=== PATIENT | male | born 1940 | race Caucasian/White ===

== ENCOUNTER 2018-02-22 08:08 | Outpatient (CLI) | payer MEDICARE | END 2018-02-22 08:09 | disposition home or self-care (01) | LOC: DI 08:08 | PROVIDERS: ATTEND Family Medicine | DX: R06.00 Dyspnea, unspecified (principal); I10 Essential (primary) hypertension | CPT/HCPCS: 93306 ==

== ENCOUNTER 2019-06-16 08:42 | Outpatient (CLI) | payer MEDICARE ==
--- NOTE | 2019-06-16 11:22 | CT Report ---
Reason: CHRONIC SINUSITUS Procedure Date: 06/16/2019 Accession Number: [id number] / [id number] Procedure: CT - Sinuses CPT Code: Final Report FULL RESULT: EXAM: CT SINUS EXAM DATE: 06/16/2019 08:58 AM. HISTORY: Chronic sinusitis. COMPARISONS: CT HEAD WO CONT 04/05/2012 11:25 AM. TECHNIQUE: Routine multi-axial CT imaging performed through the sinuses. Iodinated IV contrast: None. Reconstructions: Sagittal and coronal. In accordance with CT protocol optimization, one or more of the following dose reduction techniques were utilized for this exam: automated exposure control, adjustment of mA and/or KV based on patient size, or use of iterative reconstructive technique. FINDINGS: RIGHT Frontal: Mild circumferential mucosal thickening is seen. Note is made of a bony septum extending inferiorly. Ethmoid: Normal. Maxillary: Unremarkable. Trace mucosal thickening is seen. Mild hypoplasia is noted. Sphenoid: Normal. Drainage Pathways: The inferior frontal septum is deviated convex to the right with a laterally oriented bony spur. This narrows the right frontoethmoidal recess. The ostiomeatal complex and sphenoethmoidal recess are patent. LEFT Frontal: Minimal mucosal thickening is seen inferiorly. Ethmoid: Normal. Maxillary: Polypoid mucosal thickening is seen inferiorly, not significantly changed. Sphenoid: Normal. Drainage Pathways: The frontal recess, ostiomeatal complex and sphenoethmoidal recess are patent and normal. Nasal Cavity: Minimal curvature of the septum is seen convex to the right. No mass or significant anatomic abnormality evident. Osseous Structures: Unremarkable. Orbits: Unremarkable. Note is made of right lens removal. Other: Opacification is seen involving inferior right mastoid air cells. IMPRESSION: 1. Mild mucosal thickening circumferentially in the right frontal sinus. 2. 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 Trace mucosal thickening is seen. 3. Mild polypoid mucosal thickening inferiorly in the left maxillary sinus. RADIA
== END 2019-06-16 08:43 | disposition home or self-care (01) ==
LOC: DI 08:42
PROVIDERS: ATTEND Family Medicine
DX: J32.9 Chronic sinusitis, unspecified (principal); J33.8 Other polyp of sinus; M26.02 Maxillary hypoplasia
CPT/HCPCS: 70486

== ENCOUNTER 2019-06-22 09:09 | Outpatient (CLI) | payer MEDICARE ==
[~2019-06-22 09:09] MED LIST: ALBUTEROL NEB 2.5 MG/3 ML INH SCH
== END 2019-06-22 09:10 | disposition home or self-care (01) ==
LOC: RT 09:09
PROVIDERS: ATTEND Family Medicine
DX: R06.02 Shortness of breath (principal)
CPT/HCPCS: 94010; 94729

== ENCOUNTER → 2019-10-31 | Outpatient (CLI) | payer MEDICARE ==
[2019-10-31 19:09] LABS: BASOPHILS % (AUTO) 0.4 %; EOSINOPHILS # (AUTO) 0.1 10^3/uL (0.0-0.7); EOSINOPHILS % (AUTO) 0.8 %; HGB - HEMOGLOBIN 12.4 g/dL (14.0-18.0); LYMPHOCYTES # (AUTO) 1.2 10^3/uL (1.5-3.5); LYMPHOCYTES % (AUTO) 16.3 %; MEAN CORPUSCULAR HEMOGLOBIN 28.2 pg (27.0-31.0); MEAN CORPUSCULAR HGB CONC 31.2 g/dL (32.0-36.0); MEAN CORPUSCULAR VOLUME 90.4 fL (80.0-94.0); MEAN PLATELET VOLUME 9.5 fL (7.4-11.4); MONOCYTES # (AUTO) 1.1 10^3/uL (0.0-1.0); MONOCYTES % (AUTO) 15.5 %; NEUTROPHILS # (AUTO) 4.7 10^3/uL (1.5-6.6); NEUTROPHILS % (AUTO) 66.6 %; PLT - PLATELET COUNT 318 10^3/uL (130-450); RED BLOOD COUNT 4.39 10^6/uL (4.70-6.10); RED CELL DISTRIBUTION WIDTH 13.9 % (12.0-15.0); WHITE BLOOD COUNT 7.1 x10^3/uL (4.8-10.8)
[2019-10-31 19:34] LABS: ALBUMIN 3.6 g/dL (3.2-5.5); ALBUMIN/GLOBULIN RATIO 0.9 (1.0-2.2); BILIRUBIN,TOTAL 0.7 mg/dL (0.2-1.0); CREATININE 0.7 mg/dL (0.6-1.2); TOTAL PROTEIN 7.6 g/dL (6.7-8.2)
== END ==
LOC: LAB.WCP 16:45
PROVIDERS: ATTEND Family Medicine
DX: C61 Malignant neoplasm of prostate (principal); C85.90 Non-Hodgkin lymphoma, unspecified, unspecified site; R53.83 Other fatigue
CPT/HCPCS: 36415; 80053; 83615; 84153; 84443; 85025

== ENCOUNTER 2019-12-11 14:36 | Outpatient (CLI) | payer MEDICARE ==
[2019-12-11 18:43] LABS: BASOPHILS % (AUTO) 0.3 %; EOSINOPHILS % (AUTO) 0.6 %; HGB - HEMOGLOBIN 12.7 g/dL (14.0-18.0); LYMPHOCYTES # (AUTO) 1.2 10^3/uL (1.5-3.5); LYMPHOCYTES % (AUTO) 16.8 %; MEAN CORPUSCULAR HEMOGLOBIN 27.9 pg (27.0-31.0); MEAN CORPUSCULAR HGB CONC 30.9 g/dL (32.0-36.0); MEAN CORPUSCULAR VOLUME 90.3 fL (80.0-94.0); MEAN PLATELET VOLUME 9.6 fL (7.4-11.4); MONOCYTES # (AUTO) 1.3 10^3/uL (0.0-1.0); MONOCYTES % (AUTO) 19.1 %; NEUTROPHILS # (AUTO) 4.3 10^3/uL (1.5-6.6); NEUTROPHILS % (AUTO) 62.8 %; PLT - PLATELET COUNT 330 10^3/uL (130-450); RED BLOOD COUNT 4.55 10^6/uL (4.70-6.10); RED CELL DISTRIBUTION WIDTH 14.2 % (12.0-15.0); WHITE BLOOD COUNT 6.9 x10^3/uL (4.8-10.8)
[2019-12-11 19:02] LABS: % IRON SATURATION 12 % (20-50); IRON 27 ug/dL (45-182); TOTAL IRON BINDING CAPACITY 220 ug/dL (250-450); TRANSFERRIN 157 mg/dL (180-329)
[2019-12-11 19:13] LABS: FERRITIN 790.1 ng/mL (23.9-336.2)
== END 2019-12-11 23:59 | disposition home or self-care (01) ==
LOC: LAB.WCP 14:36
PROVIDERS: ATTEND Physician Assistant Medical
DX: D64.9 Anemia, unspecified (principal); R06.02 Shortness of breath
CPT/HCPCS: 36415; 82607; 82728; 82746; 83540; 83880; 84466; 85025

== ENCOUNTER 2020-01-02 09:26 | Outpatient (CLI) | payer MEDICARE ==
[2020-01-02 11:33] LABS: BASOPHILS % (AUTO) 0.3 %; EOSINOPHILS # (AUTO) 0.1 10^3/uL (0.0-0.7); EOSINOPHILS % (AUTO) 0.9 %; HGB - HEMOGLOBIN 12.5 g/dL (14.0-18.0); LYMPHOCYTES # (AUTO) 0.9 10^3/uL (1.5-3.5); LYMPHOCYTES % (AUTO) 13.5 %; MEAN CORPUSCULAR HEMOGLOBIN 28.8 pg (27.0-31.0); MEAN CORPUSCULAR HGB CONC 32.1 g/dL (32.0-36.0); MEAN CORPUSCULAR VOLUME 89.6 fL (80.0-94.0); MEAN PLATELET VOLUME 9.6 fL (7.4-11.4); MONOCYTES # (AUTO) 1.2 10^3/uL (0.0-1.0); MONOCYTES % (AUTO) 17.4 %; NEUTROPHILS # (AUTO) 4.5 10^3/uL (1.5-6.6); NEUTROPHILS % (AUTO) 67.6 %; PLT - PLATELET COUNT 342 10^3/uL (130-450); RED BLOOD COUNT 4.34 10^6/uL (4.70-6.10); WHITE BLOOD COUNT 6.7 x10^3/uL (4.8-10.8)
[2020-01-02 12:06] LABS: BUN - BLOOD UREA NITROGEN 11 mg/dL (6-20); CALCIUM 9.1 mg/dL (8.5-10.3); CARBON DIOXIDE - CO2 29 mmol/L (21-32); CHLORIDE 103 mmol/L (101-111); CHOL/HDL RATIO 3.2 (<5.0); CHOLESTEROL 124 mg/dL; CREATININE 0.8 mg/dL (0.6-1.2); GLUCOSE 122 mg/dL (70-100); HDL CHOLESTEROL 39 mg/dL; LDL CHOLESTEROL,CALCULATED 64 mg/dL; LDL/HDL RATIO 1.6 (<3.6); SODIUM 138 mmol/L (135-145); VLDL CHOLESTEROL 21 mg/dL
== END 2020-01-02 23:59 | disposition home or self-care (01) ==
LOC: LAB.WCP 09:26
PROVIDERS: ATTEND Nurse Practitioner
DX: R06.02 Shortness of breath (principal); I25.10 Atherosclerotic heart disease of native coronary artery without angina pectoris; I25.84 Coronary atherosclerosis due to calcified coronary lesion; R53.83 Other fatigue; I10 Essential (primary) hypertension
CPT/HCPCS: 36415; 80048; 80061; 83721; 83735; 84443; 85025

== ENCOUNTER 2020-05-26 08:00 | Outpatient (CLI) | payer MEDICARE ==
[2020-05-26 18:08] LABS: BASOPHILS % (AUTO) 0.4 %; EOSINOPHILS % (AUTO) 0.6 %; HGB - HEMOGLOBIN 11.3 g/dL (14.0-18.0); LYMPHOCYTES # (AUTO) 1.1 10^3/uL (1.5-3.5); LYMPHOCYTES % (AUTO) 16.6 %; MEAN CORPUSCULAR HEMOGLOBIN 26.8 pg (27.0-31.0); MEAN CORPUSCULAR HGB CONC 30.7 g/dL (32.0-36.0); MEAN CORPUSCULAR VOLUME 87.4 fL (80.0-94.0); MEAN PLATELET VOLUME 9.5 fL (7.4-11.4); MONOCYTES # (AUTO) 1.3 10^3/uL (0.0-1.0); MONOCYTES % (AUTO) 18.5 %; NEUTROPHILS # (AUTO) 4.3 10^3/uL (1.5-6.6); NEUTROPHILS % (AUTO) 63.6 %; PLT - PLATELET COUNT 367 10^3/uL (130-450); RED BLOOD COUNT 4.21 10^6/uL (4.70-6.10); RED CELL DISTRIBUTION WIDTH 14.6 % (12.0-15.0); WHITE BLOOD COUNT 6.8 x10^3/uL (4.8-10.8)
[2020-05-26 19:03] LABS: ALBUMIN 3.3 g/dL (3.2-5.5); ALBUMIN/GLOBULIN RATIO 0.9 (1.0-2.2); BILIRUBIN,TOTAL 0.5 mg/dL (0.2-1.0); CALCIUM 9.2 mg/dL (8.5-10.3); CREATININE 0.6 mg/dL (0.6-1.2)
[2020-05-26 19:14] LABS: FERRITIN 867.1 ng/mL (23.9-336.2)
== END 2020-05-26 23:59 | disposition home or self-care (01) ==
LOC: LAB.WCP 08:00
PROVIDERS: ATTEND Family Medicine
DX: D64.9 Anemia, unspecified (principal)
CPT/HCPCS: 36415; 80053; 82607; 82728; 82746; 83540; 84466; 85025

== ENCOUNTER 2020-06-11 12:50 | Outpatient (CLI) | payer MEDICARE ==
[2020-06-11 13:58] VITALS: BP 149/80
--- NOTE | 2020-06-11 13:58 | SLEEP CARE CONSULTATION ---
Information from patient questionnaire entered by Shanae Campos. I have reviewed and concur with the information entered by Shanae Campos. This document represents the service I personally performed and the decisions made by me, Betsey Banegas ARNP. History of Present Illness Service Date and Time: 06/11/2020 1250 Reason for Visit: New patient Chief Complaint: reports: Unrefreshed sleep, Excessive daytime sleepiness, Fatigue, Frequent awakenings at night. denies: Snoring, Observed pauses in breathing Date of Onset: 1 1/2 years Usual bedtime: 12 AM Time it takes to fall asleep: 3 - 4 min Snores at night: No Observed to quit breathing while asleep: No Sleeps alone due to snoring: No Number of times waking at night: 4 Reasons for waking at night: reports: Bathroom. denies: Choking, Snoring, Gasping for air Toss, Turn, or Twitch while sleeping: No Recalls having dreams: Yes Usually gets out of bed at: 8:30 AM Feels refreshed in the morning: No Morning headache: No Sleepy or fatigued during the day: Yes Ever fallen asleep while driving: No Takes day naps: No Prior sleep studies: No Additional HPI information: I had the pleasure of seeing MICKI COLLINS today regarding the possibility of him having a sleep disorder. His current complaints are unrefreshed sleep, excessive daytime sleepiness and fatigue. He had an appointment with his PCP who is concerned with his fatigue and weight loss. He states that he doesn't sleep well at night because he is a light sleeper and his has been falling at night due to her poor mobility. He is getting up frequently to go to the bathroom. He started a medication for overactive bladder and he was able to sleep 3.5 hours together which is not normal. He wakes up tired usually most mornings. He states he does not snore or have any pauses in breathing at night. He is the caregiver for his . - Parasomnia Symptoms Ever been unable to move upon waking from sleep: No Walks in sleep: No Talks in sleep: No Ever acted out dreams in sleep: No Ever felt weak in the knees when startled or emotional: No Bothered by creepy, crawly, restless sensations in legs: Yes (sometimes at night) Problems with memory or concentration: No Subjective Initial [place] Sleepiness Scale score: 3 (in 2020) Past Medical History Past Medical History: reports: Hypertension, Arthritis, Anxiety, Impotence, Depression Social History The patient's occupation is a retiree. Patient is and lives in [place]. Have you smoked in the past 12 months: No Cigarettes per day (20/pack): 40 Years of smokin Quit date: 1968 Smoking Pack Years: 20.0 Alcohol use: Yes Alcohol amount and frequency: 4 oz daily Caffeine use: Yes Caffeine amount and frequency: 2 cups in morn Family History Family history of sleep disordered breathing: No Allergies and Home Medications Drug allergies reviewed: Yes (NKDA) Home medication list reviewed: Yes Allergy and home medication list: Metoprolol cholesterol drug overactive bladder pill at night just started Review of Systems Weight gain over past 5 years: 10 Cardiovascular: reports: high blood pressure Respiratory: reports: shortness of breath, sputum production Gastrointestinal: reports: diarrhea Urinary: reports: frequency, impotence Psychiatric: reports: anxiety, depression Ear/Nose/Throat: reports: dry mouth/throat, tonsillectomy, wisdom teeth removed Endocrine: reports: sluggishness (tired), unexplained weakness Physical Exam Blood Pressure: 149/80 Cuff size: wrist Heart Rate: 81 O2 Saturation: 93 Height: 6 ft 1 in Weight: 186 lb Body Mass Index: 24.5 BMI Classification: Healthy weight Heart: regular rate and rhythm Lungs: clear bilaterally Impression and Plan 1. Suspected Obstructive Sleep Apnea-Hypopnea Syndrome, as suggested by a history of frequent awakening during the night, unrefreshed sleep, fatigue, and excessive daytime sleepiness. Narrow oropharynx and obesity are common predisposing factors for obstructive sleep apnea-hypopnea syndrome. I recommend proceeding to polysomnography to confirm the diagnosis and to assess severity. If the patient has significant sleep disordered breathing, a manual CPAP titration study will also be performed to find the optimal treatment pressure. I informed the patient of what the sleep studies involve and after some discussion, obtained agreement to proceed. The pathophysiology of obstructive sleep apnea-hypopnea syndrome was discussed with the patient and health risks of cardiovascular and cerebrovascular disease if not treated. Risks of drowsy driving discussed in detail and patient advised to avoid long distance driving and to side puller at the first sign of drowsiness. Patient agreed to plan. * Schedule polysomnography +- manual CPAP titration study and return in 1-2 weeks after the study to discuss result and initiate therapy. * Avoid long distance driving or driving when feeling sleepy. * Avoid alcohol, sedative and muscle relaxant around bedtime. * Review instructions provided by trained office staff on how to prepare for the sleep study. * Return for follow-up after sleep study completed. Visit Type: In Office Time Spent with Patient (minutes): 25 Provider Statement: I spent 100% of the Face to Face Visit with the patient with greater than 50% spent counseling the patient and coordination of care.
== END 2020-06-11 12:51 | disposition home or self-care (01) ==
LOC: SC 12:50
PROVIDERS: ATTEND Nurse Practitioner Family
DX: G47.10 Hypersomnia, unspecified (principal); R53.83 Other fatigue; G47.8 Other sleep disorders
CPT/HCPCS: 99202; G0463; 99212

== ENCOUNTER 2020-07-07 14:01 | Outpatient (CLI) | payer MEDICARE | END 2020-07-07 14:02 | disposition home or self-care (01) | LOC: SC 14:01 | PROVIDERS: ATTEND Nurse Practitioner Family | DX: G47.10 Hypersomnia, unspecified (principal); G47.8 Other sleep disorders; R53.83 Other fatigue | CPT/HCPCS: G0399 ×2; 95806 ==

== ENCOUNTER 2020-07-14 13:40 | Outpatient (CLI) | payer MEDICARE ==
--- NOTE | 2020-07-14 14:03 | SLEEP CARE CONSULTATION ---
Information from patient questionnaire entered by Shanae Campos. I have reviewed and concur with the information entered by Shanae Campos. This document represents the service I personally performed and the decisions made by , Betsey Banegas ARNP. History of Present Illness Service Date and Time: 07/14/2020 1340 Initial [place] Sleepiness Scale score: 3 (in 2020) Current [place] Sleepiness Scale score: 2 Additional HPI information: MICKI COLLINS returns for follow up and results of the recently performed home sleep study. The patient was informed of the following findings: no significant sleep disordered breathing with an average AHI 2.8 and a johanna oxygen saturation of 88%. I explained the pathophysiology behind obstructive sleep apnea. Patient does not have sleep apnea and was advised how weight gain could increase the risk of developing sleep apnea in the future. Patient counseled not drink alcohol less than 4 hours before bedtime as it can increase snoring and apnea. Patient was cautioned about risks of drowsy driving until sleepiness symptoms resolve. Patient denies drowsy driving. Sleep Study - Results Type of Sleep Study: Home sleep study Prior sleep studies: No Polysomnography/Home Sleep Study results: The quality of the study is poor due to frequent loss of airflow signal.. The length of the study is adequate (> 240 minutes). Please also see the tabulated and graphic data. 1. no significant sleep disordered breathing, with an AHI of 2.8/hr and johanna SaO2 of 88%. During the study, the patient had 2 apneas (2 obstructive, 0 central, 0 mixed) and 9 hypopneas. The longest episode lasted 62.5 seconds. The patient did not sleep supine during this study (supine AHI was 0.0 and non-supine, 2.81). 2. Hypoxemia (ICD-10 R09.02), minimal, with the lowest oxygen saturation of 88 % and 2.9 minutes with SaO2 under 90%. Baseline oxygen saturation was normal (Average oxygen saturation was 93%). Allergies and Home Medications Home medication list reviewed: Yes (no changes) Review of Systems Review of systems same as previous: Yes (no changes) Physical Exam Heart Rate: 75 O2 Saturation: 92 Height: 6 ft 1 in Weight: 185 lb Body Mass Index: 24.4 BMI Classification: Healthy weight Impression and Plan 1. Fatigue, unspecified. His HST was a poor study due to airflow signal loss and I advised patient that we can repeat the study in the lab. He did not show to have significant sleep disordered breathing with an AHI of 2.8. He would like to just follow up with his PCP for his fatigue. He does not think he has sleep apnea and did not want to repeat the study. He states he will come back for an in lab test if other avenues of evaluation come up empty. He did not have significant snoring recorded on the study and his [place] today is 2/24. I advised him to continue follow up with PCP and to return as needed. He voiced understanding and agreement with plan of care. He states he does drink alcohol nightly and I advised him to limit alcohol consumption 4-6 hours before bedtime. He voiced understanding. * Follow up with PCP for fatigue issue * Avoid alcohol consumption near bedtime * Return as needed. Counseling Topics: Weight loss health impact Visit Type: In Office Time Spent with Patient (minutes): 16 Provider Statement: I spent 100% of the Face to Face Visit with the patient with greater than 50% spent counseling the patient and coordination of care.
== END 2020-07-14 13:41 | disposition home or self-care (01) ==
LOC: SC 13:40
PROVIDERS: ATTEND Nurse Practitioner Family
DX: G47.10 Hypersomnia, unspecified (principal); R53.83 Other fatigue; G47.8 Other sleep disorders
CPT/HCPCS: 99212; G0463

== ENCOUNTER 2020-07-30 09:00 | Outpatient (CLI) | payer MEDICARE ==
[2020-07-30 12:47] LABS: ALBUMIN 3.3 g/dL (3.2-5.5); ALBUMIN/GLOBULIN RATIO 0.8 (1.0-2.2); BILIRUBIN,TOTAL 0.7 mg/dL (0.2-1.0); CALCIUM 9.3 mg/dL (8.5-10.3); CREATININE 0.7 mg/dL (0.6-1.2); POTASSIUM 4.1 mmol/L (3.5-5.0); TOTAL PROTEIN 7.6 g/dL (6.7-8.2)
[2020-07-30 12:51] LABS: FERRITIN 1028.1 ng/mL (23.9-336.2)
[2020-07-30 13:12] LABS: BASOPHILS % (AUTO) 0.5 %; EOSINOPHILS # (AUTO) 0.1 10^3/uL (0.0-0.7); EOSINOPHILS % (AUTO) 1.6 %; HCT - HEMATOCRIT 35.2 % (42.0-52.0); HGB - HEMOGLOBIN 10.5 g/dL (14.0-18.0); LYMPHOCYTES # (AUTO) 1.4 10^3/uL (1.5-3.5); LYMPHOCYTES % (AUTO) 22.3 %; MEAN CORPUSCULAR HEMOGLOBIN 25.7 pg (27.0-31.0); MEAN CORPUSCULAR HGB CONC 29.8 g/dL (32.0-36.0); MEAN CORPUSCULAR VOLUME 86.1 fL (80.0-94.0); MEAN PLATELET VOLUME 9.6 fL (7.4-11.4); MONOCYTES # (AUTO) 1.2 10^3/uL (0.0-1.0); MONOCYTES % (AUTO) 19.4 %; NEUTROPHILS # (AUTO) 3.5 10^3/uL (1.5-6.6); NEUTROPHILS % (AUTO) 55.9 %; PLT - PLATELET COUNT 345 10^3/uL (130-450); RED BLOOD COUNT 4.09 10^6/uL (4.70-6.10); RED CELL DISTRIBUTION WIDTH 15.7 % (12.0-15.0); WHITE BLOOD COUNT 6.2 x10^3/uL (4.8-10.8)
== END 2020-07-30 23:59 | disposition home or self-care (01) ==
LOC: LAB.WCP 09:00
PROVIDERS: ATTEND Family Medicine
DX: C85.90 Non-Hodgkin lymphoma, unspecified, unspecified site (principal); D64.9 Anemia, unspecified; Z85.46 Personal history of malignant neoplasm of prostate
CPT/HCPCS: 36415; 80053; 82607; 82728; 83540; 84153; 84466; 85025

== ENCOUNTER 2020-10-09 12:07 | Outpatient (CLI) | payer MEDICARE ==
[2020-10-09] MEDS ORDERED: IOVERSOL 320 100 ML VIAL IVP ONE ×2 (12:14→13:31)
[2020-10-09] MEDS ORDERED: IOPAMIDOL-300 50 ML VIAL ONE (12:14)
[2020-10-09] MEDS ORDERED: IOPAMIDOL-300 50 ML VIAL PO ONE (13:32)
--- NOTE | 2020-10-09 14:31 | CT Report ---
PROCEDURE: Abdomen/Pelvis W INDICATIONS: CLL,DIARRHEA CONTRAST: IV CONTRAST: Optiray 320 ml: 100 PO CONTRAST: Isovue 300 ml50 TECHNIQUE: After the administration of contrast, 5 mm thick sections acquired from the diaphragms to the sym physis. 5 mm thick coronal and sagittal reformats were acquired. For radiation dose reduction, the following was used: automated exposure control, adjustment of mA and/or kV according to patient size . COMPARISON: 04/26/2015 CT abdomen/pelvis. FINDINGS: Image quality: Excellent. ABDOMEN: Lung bases: Lung bases are clear. Heart size is normal. Solid organs: Liver and spleen are normal in size and enhancement. Gallbladder is partially contrac debra and contains at least one 5 mm partially calcified gallstone. No sign of acute cholecystitis. Bi liary system is non dilated. Pancreas enhances normally. No adrenal nodules. Kidneys demonstrate n ormal size and enhancement, without hydronephrosis. There is an 8.3 cm exophytic right posterior armin al cortical cyst. Peritoneum and bowel: Bowel loops demonstrate normal wall thickness and caliber. No free fluid or a ir. Nodes and vessels: No retroperitoneal or mesenteric adenopathy by size criteria. Aorta and inferior vena cava are normal in size. Miscellaneous: No ventral hernias. PELVIS: Genitourinary: Bladder wall thickness is normal. Postsurgical clips suggest prior lymph node excisio n and prostatectomy. Miscellaneous: No inguinal hernias or adenopathy. Bones: No suspicious bony lesions. No vertebral body compression fractures. IMPRESSION: No sign of diverticulitis or appendicitis. Postsurgical changes of lymph node excision a t each pelvic sidewall, and probable prior prostatectomy. A source of right abdominal pain is not identified, the gallbladder does not appear inflamed but ther e is a 5 mm partially calcified gallstone within the gallbladder lumen. Exophytic large 8.3 cm simple appearing water density right renal cortical cyst. Reviewed by: Car Costa MD on 10/09/2020 2:30 PM PDT Approved by: Car Costa MD on 10/09/2020 2:30 PM PDT Station ID: [id number]
--- NOTE | 2020-10-09 16:16 | CT Report ---
PROCEDURE: CHEST W INDICATIONS: CLL, DIARRHEA CONTRAST: IV CONTRAST: Optiray 320 ml: 100 PO CONTRAST: Isovue 300 ml50 TECHNIQUE: After the administration of intravenous contrast, 5 mm thick sections acquired from the pulmonary api bobo to the posterior costophrenic angles. 7 mm thick coronal MIP reformats were acquired. For radia tion dose reduction, the following was used: automated exposure control, adjustment of mA and/or kV according to patient size. COMPARISON: Same day CT abdomen and pelvis CT chest 11/27/2019. FINDINGS: Image quality: Excellent. Lungs and pleura: Multiple small pulmonary nodules measuring 0.4 cm or less which appear unchanged. Some of these appear calcified. No acute air space opacities. No pleural effusions or pneumothorax. Central and peripheral airways are patent and normal in caliber. Mediastinum: Heart size is normal. No pericardial effusion. No mediastinal or hilar adenopathy by size criteria. Thoracic aorta and central pulmonary arteries are normal in size. No central pulmonar y embolism. Esophagus is normal in caliber. No hiatal hernia. Bones and chest wall: No suspicious bony lesions. No vertebral body compression fractures. No axil belem or supraclavicular adenopathy by size criteria. Left thyroid gland appears absent. Gynecomastia . Abdomen: Gallstones. Right renal simple cyst. Visualized upper abdominal solid organs appear normal. Upper abdominal bowel loops are normal in caliber. IMPRESSION: 1. No acute airspace opacity. No significant pulmonary nodules. 2. No adenopathy in the chest. Please see separately dictated same day CT abdomen and pelvis. Reviewed by: Evin Martell MD on 10/09/2020 4:15 PM PDT Approved by: Evin Martell MD on 10/09/2020 4:15 PM PDT Station ID: [id number]
--- NOTE | 2020-10-09 16:48 | CT Report ---
PROCEDURE: SOFT TISSUE NECK W INDICATIONS: CLL,DIARRHEA CONTRAST: IV CONTRAST: Optiray 320 ml: 100 PO CONTRAST: Isovue 300 ml50 TECHNIQUE: After the administration of intravenous contrast, 3.0 mm axial sections acquired from the sella to th e aortic arch. Additional oblique axial 3.0 mm sections acquired through the pharynx. 3 mm thick co june reformats were generated. For radiation dose reduction, the following was used: automated exp osure control, adjustment of mA and/or kV according to patient size. COMPARISON: Soft tissue neck 04/18/13, 09/24/2017, CT chest August 05 FINDINGS: Image quality: Excellent. Lymph nodes: No enlarged lymph nodes seen throughout the neck. Scattered subcentimeter lymph nodes are present. Vessels: Visualized vasculature appears patent. Neck spaces: The oropharynx, nasopharynx, and pharynx demonstrate no mucosal lesions. The vocal cor ds, false vocal cords, pyriform sinuses, epiglottis, vallecula, and tongue base all appear normal. E xtramucosal spaces appear unremarkable. Glands: The parotid and submandibular glands appear normal. Right thyroid lobe is unremarkable. Lef t lobe is not visualized. Miscellaneous: Visualized brain and orbits appear normal. Lung apices demonstrate scattered punctat e nodules, unchanged. Superficial soft tissues appear normal. Bones: No suspicious bony lesions. Visualized sinuses and mastoids appear unremarkable. IMPRESSION: 1. Scattered subcentimeter lymph nodes are identified within the head and neck. No pathologic enlarge ment by size criteria. Reviewed by: Zulma Arambula MD on 10/09/2020 4:47 PM PDT Approved by: Zulma Arambula MD on 10/09/2020 4:47 PM PDT Station ID: [id number]
== END 2020-10-09 12:08 | disposition home or self-care (01) ==
LOC: DI 12:07
PROVIDERS: ATTEND Internal Medicine Hematology & Oncology
DX: C91.00 Acute lymphoblastic leukemia not having achieved remission (principal); C83.30 Diffuse large B-cell lymphoma, unspecified site; R19.7 Diarrhea, unspecified; K80.20 Calculus of gallbladder without cholecystitis without obstruction; N28.1 Cyst of kidney, acquired; R53.83 Other fatigue
CPT/HCPCS: 70491; 71260; 74177; Q9967